=== PATIENT | female | born 1945 | race Caucasian/White ===

== ENCOUNTER 2023-05-24 14:54 | Outpatient (CLI) | payer MEDICARE, MEDICAID, SELFPAY ==
--- NOTE | 2023-05-24 15:07 | XR_ITS ---
WS: [id number] DEXA (DUAL ENERGY X-RAY ABSORPTIOMETRY) Bone mineral density was performed using a AquaBlok machine. HISTORY: POSTMENOPAUSAL COMPARISON: None available. Lumbar spine BMD (L1-L4): 1.076 g/cm2 T score: -0.9 Z score: 1.0 Total hip BMD: Left: 0.905 g/cm2. T score: -0.8 Z score: 1.1 Right: 0.940 g/cm2. T score: -0.5 Z score: 1.4 10 year probability of a major osteoporotic fracture is 33.5%. LEFT curvature lumbar spine. XR/XR DEXA axial skeleton* [id number] IMPRESSION: NORMAL BONE MINERAL DENSITY based upon the WHO classification for females.
--- NOTE | 2023-05-24 15:15 | MM_ITS ---
WS: [id number] BILATERAL 3D TOMOSYNTHESIS DIGITAL SCREENING MAMMOGRAPHY WITH CAD CLINICAL INFORMATION: SCREENING HISTORY: Screening mammogram. No current complaints. COMPARISON: None. TECHNIQUE: Bilateral CC and MLO views. FINDINGS: The breasts are composed of heterogeneous fibroglandular density tissue, which can limit the detectio n of small underlying mass lesions. No suspicious mass, asymmetry, calcifications, or architectural d istortion. No evidence of malignancy. MM/[place] [id number] IMPRESSION: BI-RADS: 1-Negative FOLLOW UP: 1 Year Follow-up Recommend return to annual screening mammography.
== END 2023-05-24 14:55 | disposition home or self-care (01) ==
LOC: RAD 15:02 → MOBLMAM 15:14
PROVIDERS: PCP Physician Assistant; Visit Provider Physician Assistant
DX: Z12.31 Encounter for screening mammogram for malignant neoplasm of breast (principal); Z78.0 Asymptomatic menopausal state
CPT/HCPCS: 77063; 77067; 77080

== ENCOUNTER → 2023-08-08 15:51 | Outpatient (BNVA) | payer MEDICARE, MEDICAID, SELFPAY | PROVIDERS: PCP Physician Assistant; Referring Provider Physician Assistant; Visit Provider Internal Medicine Cardiovascular Disease | DX: R07.9 Chest pain, unspecified (principal); I25.10 Atherosclerotic heart disease of native coronary artery without angina pectoris; I07.1 Rheumatic tricuspid insufficiency; E78.5 Hyperlipidemia, unspecified; I10 Essential (primary) hypertension | CPT/HCPCS: 93005; 99204 ==

== ENCOUNTER → 2023-11-02 12:48 | Outpatient (BNVA) | payer MEDICARE, MEDICAID, SELFPAY | PROVIDERS: PCP Physician Assistant; Visit Provider Nurse Practitioner Family | DX: I10 Essential (primary) hypertension (principal); I25.10 Atherosclerotic heart disease of native coronary artery without angina pectoris | CPT/HCPCS: 99214 ==

== ENCOUNTER 2023-11-18 12:26 | Outpatient (CLI) | payer MEDICARE, MEDICAID, SELFPAY ==
--- NOTE | 2023-11-18 13:00 | USCV_ITS ---
Devi Hyde Age: 78 Gender: F : 1945 Exam Date: 11/18/2023 13:21 Ordering Phys: Brisa Barone Technologist: Alek Han [place] [facility] [place]: mitral regurg BP: 129 / 78 HR: 50 Rhythm: Sinus Technical Quality: Adequate MEASUREMENTS (Male / Female) Normal Values 2D ECHO LVOT Diameter 2.0 cm LV Ejection Fraction MOD 2C 61.5 % LV Ejection Fraction 2C AL 61.6 % LA Diameter 3.5 cm LA Width 3.1 cm LA Height 4.0 cm RA Width 2.9 cm RA Height 4.0 cm Aorta at Sinotubular Diameter 2.8 cm IVC Diameter 1.2 cm M-MODE Aortic Annulus Diameter 2.6 cm LA Ao Ratio MM 1.4 MV E Point Septal Separation 0.4 cm DOPPLER AV Peak Velocity 131.7 cm/s LVOT Peak Velocity 78.0 cm/s AV Area Cont Eq vti 1.8 cm squared AV Area Cont Eq pk 1.9 cm squared MV Peak Velocity 111.0 cm/s MV Area PHT 5.0 cm squared Mitral E to A Ratio 0.9 MV E' Velocity 50.0 cm/s Mitral E to MV E' Ratio 7.8 Mitral E to LV E' Lateral Ratio 8.0 Mitral E to LV E' Septal Ratio 7.8 TR Peak Velocity 215.4 cm/s TR Peak Gradient 18.6 mmHg TR Mean Velocity 185.9 cm/s TR Mean Gradient 13.7 mmHg TR Velocity Time Integral 57.3 cm Right Atrial Pressure 3.0 mmHg Pulmonary Artery Systolic Pressu 21.6 mmHg PV Peak Velocity 86.0 cm/s RV Acceleration Time 0.2 s RV Ejection Time 0.3 s RV AcT/ET 0.6 FINDINGS Left Ventricle Normal left ventricular size and systolic function, EF 64 %. No regional wall motion abnormalities. Mild left ventricular hypertrophy. Right Ventricle The right ventricle is normal in size and function. Right Atrium The right atrium is normal in size. Left Atrium The left atrium is normal in size. Mitral Valve Thickened mitral valve. Aortic Valve Thickened aortic valve. Tricuspid Valve No gross abnormalities noted .trace tricuspid valve regurgitation. Pulmonic Valve Pulmonic valve not well visualized. Pericardium Normal pericardium without effusion. Aorta Normal ascending aorta dimension. IVC Normal inferior vena cava. CONCLUSIONS Normal left ventricular size and systolic function, EF 64 %. No regional wall motion abnormalities. Mild left ventricular hypertrophy. Thickened mitral valve. Thickened aortic valve. .trace tricuspid valve regurgitation. Estimated pulmonary artery peak systolic pressure of 22 mmHg There is no pericardial effusion. There are no intracardiac masses. No similar previous studies are available for comparison. Dr Sonya Steele MD [facility] (Electronically Signed) Final Date: 21 November 2023 16:42 S
== END 2023-11-18 12:27 | disposition home or self-care (01) ==
LOC: RAD 12:27
PROVIDERS: PCP Physician Assistant; Visit Provider Nurse Practitioner Family
DX: I34.0 Nonrheumatic mitral (valve) insufficiency (principal); I08.0 Rheumatic disorders of both mitral and aortic valves
CPT/HCPCS: 93306

== ENCOUNTER → 2024-04-30 11:40 | Outpatient (BNVA) | payer MEDICARE, MEDICAID, SELFPAY | PROVIDERS: PCP Physician Assistant; Visit Provider Internal Medicine Cardiovascular Disease | DX: R07.9 Chest pain, unspecified (principal); R00.1 Bradycardia, unspecified; I25.10 Atherosclerotic heart disease of native coronary artery without angina pectoris; I10 Essential (primary) hypertension; E78.2 Mixed hyperlipidemia; I36.1 Nonrheumatic tricuspid (valve) insufficiency | CPT/HCPCS: 93005; 99214 ==

== ENCOUNTER → 2025-01-14 14:31 | Outpatient (BNVA) | payer MEDICARE, MEDICAID, SELFPAY | PROVIDERS: PCP Physician Assistant; Visit Provider Internal Medicine Cardiovascular Disease | DX: I25.10 Atherosclerotic heart disease of native coronary artery without angina pectoris (principal); R00.1 Bradycardia, unspecified; I10 Essential (primary) hypertension; E78.2 Mixed hyperlipidemia; I36.1 Nonrheumatic tricuspid (valve) insufficiency; I25.2 Old myocardial infarction; Z87.891 Personal history of nicotine dependence | CPT/HCPCS: 99214 ==

== ENCOUNTER → 2025-01-24 09:28 | Outpatient (BNVA) | payer MEDICARE, MEDICAID, SELFPAY | PROVIDERS: PCP Physician Assistant; Visit Provider Orthopaedic Surgery | DX: M16.11 Unilateral primary osteoarthritis, right hip (principal) | CPT/HCPCS: 99204 ==

== ENCOUNTER 2025-02-12 09:46 | Outpatient (CLI) | payer MEDICARE, MEDICAID, SELFPAY ==
[2025-02-12 10:35] LABS: Basophils # 0.1 10^3/uL (0.0-0.1); Basophils % 1.8 %; Eosinophils # 0.5 10^3/uL (0.0-0.8); Hematocrit 43.6 % (36-47); Lymphocytes # 1.5 10^3/uL (0.8-4.8); Mean Corpuscular HGB Conc 31.7 g/dL (30-55); Mean Corpuscular Hemoglobin 29.6 pg (27-33); Mean Corpuscular Volume 93.6 fl (85-98); Mean Platelet Volume 10.2 fL (7.4-10.4); Monocytes # 0.6 10^3/uL (0.2-0.9); Monocytes % 10.3 %; Neutrophils # 3.41 10^3/uL (1.8-7.7); Neutrophils % 55.6 %; Nucleated Red Blood Cells % 0 %; Platelet Count 236 10^3/cmm (157-399); Red Blood Count 4.66 10^6/uL (3.85-5.65); Red Cell Distribution Width 12.8 % (12.1-15.1); White Blood Count 6.13 10^3/uL (3.29-11.43)
[2025-02-12 10:37] LABS: Bacteria Urine None Seen /hpf; Hyaline Casts Urine 1.65 /lpf; Squamous Epithelial Cell Urine 0-5 /hpf (0-5); WBC Urine 0-5 /hpf (0-5)
[2025-02-12 10:49] LABS: Add Urine Microscopic? YES; Bilirubin Urine Neg (Negative); Blood Urine 2+ (Negative); Glucose Urine UA Norm (Normal); Ketones Urine Negative (Negative); Leukocyte Esterase Urine Negative (Negative); Nitrate Urine Negative (Negative); Protein Urine Neg (Negative); Urine Appearance Clear (CLEAR); Urine Color Yellow (Yellow); Urobilinogen Urine Norm (Negative); pH Urine 5 (5-7)
[2025-02-12 10:50] LABS: Add Urine Culture? No
[2025-02-12 10:55] LABS: Alanine Aminotransferase 16 U/L (0-33); Albumin Level 4.6 g/dL (3.5-5.2); Alkaline Phosphatase 90 U/L (35-105); Anion Gap 14.2 (5-19); Aspartate Amino Transferase 19 U/L (0-32); Blood Urea Nitrogen 25 mg/dL (8-23); Calcium 9.2 mg/dL (8.5-10.5); Carbon Dioxide 26 mmol/L (22-29); Chloride 109 mmol/L (98-107); Globulin 2.4 g/dL (1.3-4.6); Glucose 97 mg/dL (65-115); Osmolality Calculated 304 mOsm/kg (285-295); Potassium 4.2 mmol/L (3.5-5.1); Sodium 145 mmol/L (136-145); Total Bilirubin 1.3 mg/dL (0.15-1.2)
== END 2025-02-12 09:47 | disposition home or self-care (01) ==
LOC: LAB 09:48
PROVIDERS: PCP Physician Assistant; Visit Provider Orthopaedic Surgery
DX: Z01.818 Encounter for other preprocedural examination (principal)
CPT/HCPCS: 36415; 80053; 81001; 85025

== ENCOUNTER → 2025-02-19 10:25 | Outpatient (BNVA) | payer MEDICARE, MEDICAID, SELFPAY | PROVIDERS: PCP Physician Assistant; Visit Provider Family Medicine | DX: Z01.818 Encounter for other preprocedural examination (principal); I21.19 ST elevation (STEMI) myocardial infarction involving other coronary artery of inferior wall | CPT/HCPCS: 93005 ==

== ENCOUNTER 2025-03-10 03:09 | Emergency (ER) | payer MEDICARE, MEDICAID, SELFPAY ==
[2025-03-10 03:17] VITALS: BP 168/99; PULSE 68; RESP 16; TEMP 36.8; O2SAT 99; BMI 21.7
[2025-03-10 03:21] VITALS: BP 186/78; PULSE 87; RESP 18; O2SAT 96
[2025-03-10] MEDS: ondansetron 2 mg/ML SDV 2 mL 4 MG IVP (04:02)
[2025-03-10] MEDS: morphine 4 mg/mL SDV 1 mL IVP ×2 (04:02→04:39)
--- NOTE | 2025-03-10 04:07 | XRR_ITS ---
PROCEDURE INFORMATION: Exam: XR Right Hip Exam date and time: 03/10/2025 4:09 AM Age: 79 years old Clinical indication: Right hip; C/O intolerable RT hip pain. No injury. Scheduled for jessica on 03/12/2025; Additional info: R hip inj/pain TECHNIQUE: Imaging protocol: Radiologic exam of the right hip. Views: 1 view hip with pelvis when performed. COMPARISON: CR XR hip RT 2-3V wo/w pel* [id number] 01/11/2025 10:50 AM FINDINGS: Bones/joints: Very severe end-stage right hip degenerative change again noted. 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 Extensive subchondral cystic formation. Moderate left hip DJD. No fracture or significant change from 01/11/2025. Soft tissues: Absent appendix. XR/XR hip RT 2-3V wo/w pel* [id number] IMPRESSION: 1. No acute findings. 2. End-stage right hip DJD. 3. A few other chronic/incidental findings above.
[2025-03-10 04:34] VITALS: BP 168/99; PULSE 68; RESP 18; O2SAT 96
[2025-03-10] MEDS: ketorolac 30 mg/mL INJ IVP (04:39)
--- NOTE | 2025-03-10 05:08 | W.ED.EXTPRO ---
HPI - Extremity Problem General: Chief complaint: Extremity Injury, Lower Stated complaint: HIP PAIN Time Seen by Provider: 03/10/25 03:59 History of Present Illness: 79 year old female with end stage right hip osteoarthritis. She's awaiting arthroplasty on Tuesday. She reports that her dog jumped on her hip earlier in the evening. She's had an intense pain since. She has been unable to bear weight. No numbness or tingling. No swelling. She had been taken off of her ibuprofen, diclofenac, and Tylenol prior to her procedure. Related Data Home Medications ?Medication ?Instructions ?Recorded ?Confirmed acetaminophen 650 mg 650 mg PO Q12H 08/08/23 02/19/25 tablet,extended release (Tylenol 8 Hour) aspirin 81 mg chewable tablet 81 mg PO DAILY 08/08/23 02/19/25 atorvastatin 80 mg tablet 80 mg PO DAILY 08/08/23 02/19/25 carvedilol 6.25 mg tablet 6.25 mg PO BID 08/08/23 02/19/25 diclofenac sodium 75 mg 75 mg PO BID 08/08/23 02/19/25 tablet,delayed release gabapentin 300 mg capsule 300 mg PO DAILY 08/08/23 02/19/25 sertraline 100 mg tablet 50 mg PO DAILY 08/08/23 02/19/25 Previous Rx's ?Medication ?Instructions ?Recorded losartan 50 mg tablet See Rx Instructions .Route 02/06/25 .COMPLEX #90 tabs oxycodone-acetaminophen 7.5 mg-325 1 tab PO Q6H PRN pain #10 tabs 03/10/25 mg tablet (Percocet) Allergies Allergy/AdvReac Type Severity Reaction Status Date / Time No Known Allergies Allergy Verified 02/19/25 10:41 PFSH ED PFSH: Medical History Hyperlipidemia Essential hypertension Generalized anxiety disorder Bradycardia Muscle pain Hx of echocardiogram Hx of myocardial infarction Social History Smoking and tobacco/nicotine status: former use of tobacco/nicotine Physical Exam Const: GENERAL APPEARANCE: cooperative HENMT: COMMON NORMALS: normocephalic, atraumatic and Normal external nose present HEAD & SCALP: normocephalic and atraumatic FACE & SINUS: normal facial exam and face symmetric NOSE: Normal external nose present Eye: COMMON NORMALS: Equal, round and reactive pupils present and EOMs intact bilaterally PUPIL: Yes Equal, round and reactive pupils present Neck/C-Spine: GENERAL: Yes trachea midline Chest: CHEST: Yes Symmetrical chest wall rise Resp: COMMON NORMALS: normal respiratory effort, No retractions, No use of accessory muscles and clear to auscultation bilaterally AUSCULTATION: clear to auscultation bilaterally Cardio: COMMON NORMALS: regular rate and regular rhythm RATE: regular rate RHYTHM: regular rhythm GI: COMMON NORMALS: Normal to inspection, nondistended, normoactive bowel sounds present Extremity: NARRATIVE EXTREMITY EXAM: Examination of the right lower extremity reveals no significant deformity. There is tenderness to the anterior and lateral hip on the right. No significant pelvis tenderness. Pulses and sensation are intact distally. There is pain with movement of that hip. No tenderness to the femur distal to the hip. Neuro: GABO COMA SCALE: document GCS findings Ragland coma scale eye opening: Spontaneous Gabo coma scale verbal response: Orientated Ragland coma scale motor response: Obey commands Ragland coma scale total score: 15 SENSORY EXAM: Yes extremities (intact) Psych: COMMON NORMALS: speech normal SPEECH: Yes normal speech Course Vital Signs: Vital signs: Vital Signs Temperature 98.3 F 03/10/25 03:17 Pulse Rate 72 03/10/25 06:11 Respiratory Rate 16 03/10/25 06:11 Blood Pressure 168/99 03/10/25 06:11 Pulse Oximetry 92 03/10/25 06:11 Oxygen Delivery Me thod Room Air 03/10/25 04:34 MDM - Extremity (Nontraumatic) Medical Decision Making X-rays reveal no acute findings. There is end stage OA of the right hip. Pain is improved after morphine and toradol here. She'll go home with percocet for 48 hours until her procedure. Ice. Limited weight bearing. To return for any new or worsening symptoms. Lab Data Radiology Impressions Hip/Pelvis X-Ray 03/10/25 04:07 IMPRESSION: 1. No acute findings. 2. End-stage right hip DJD. 3. A few other chronic/incidental findings above. All radiology interpretation(s) finalized by discharge Discharge Plan Discharge Patient Disposition: Home Clinical Impression: Hip osteoarthritis Condition: Stable Prescriptions: New oxycodone-acetaminophen [Percocet] 7.5-325 mg tablet 1 tab PO Q6H PRN (Reason: pain) Qty: 10 0RF No Action atorvastatin 80 mg tablet 80 mg PO DAILY aspirin 81 mg tablet,chewable 81 mg PO DAILY carvedilol 6.25 mg tablet 6.25 mg PO BID Rx Instructions: must administer with a meal/food diclofenac sodium 75 mg tablet,delayed release (DR/EC) 75 mg PO BID gabapentin 300 mg capsule 300 mg PO DAILY sertraline 100 mg tablet 50 mg PO DAILY acetaminophen [Tylenol 8 Hour] 650 mg tablet extended release 650 mg PO Q12H losartan 50 mg tablet See Rx Instructions .ROUTE .COMPLEX Qty: 90 3RF Dose Instruction: Take 1 tablet by mouth once daily Rx Instructions: Take 1 tablet by mouth once daily Discharge Orders: Discharge ED (Routine); Ordered 03/10/25 Ordered By: Francisco J Topete Referrals: Asia Steven PA [Primary Care Provider, [address] Worker] Patient Instructions: Osteoarthritis (ED), Opioid Safety, Pain Management Activity Restrictions/Additional Instructions: Use medication sparingly. Ice to the hip. Return for fever or other problems. See your surgeon on Tuesday. Print Language: Yoruba Coding Level of Care Code ED Gutter Installer for Keesha Ryan
[2025-03-10 06:11] VITALS: BP 168/99; PULSE 72; RESP 16; O2SAT 92
== END 2025-03-10 06:13 | disposition home or self-care (01) ==
PROVIDERS: Emergency Provider Emergency Medicine; PCP Physician Assistant
DX: M16.11 Unilateral primary osteoarthritis, right hip (principal); Z79.82 Long term (current) use of aspirin; Z87.891 Personal history of nicotine dependence; E78.5 Hyperlipidemia, unspecified; I10 Essential (primary) hypertension
CPT/HCPCS: 73502; 96374; 96375; 99284; J1885; J2270; J2405

== ENCOUNTER 2025-03-12 14:20 | Observation (INO) | payer MEDICARE, MEDICAID, SELFPAY ==
[2025-03-12] VITALS (12 sets, daily range): BP systolic 110–148; BP diastolic 54–85; PULSE 62–88; RESP 16–20; TEMP 36.3–37.2; O2SAT 91–99; BMI 23.1
[2025-03-12] MEDS: sodium chloride 0.9% 1,000 ML 30 ML IV (10:23)
--- NOTE | 2025-03-12 10:38 | W.PM.OPSUD ---
Surgery/Procedure H&P Update DATE OF PROCEDURE: March 12, 2025 DATE H&P PERFORMED: 02/19/25 H&P UPDATE INFORMATION: I have reviewed H&P completed within last 30 days, I have examined patient prior to procedure, No changes to prior documentation and Risks and benefits of the procedure reviewed PREOP DIAGNOSIS: Right hip end-stage arthritis PLANNED PROCEDURE: Operation Date: 03/12/25 11:05 Proposed Procedures p RIGHT Total Hip Arthroplasty(Right) - Mauri Moore MD
--- NOTE | 2025-03-12 11:54 | ANES.PREANE2 ---
Pre-Anesthetic Assessment Height/Weight: Height 1.63 m Weight 61.235 kg Temp Pulse Resp BP Pulse Ox O2 Del Method 97.4 F L 62 16 132/75 99 Room Air 03/12/25 09:52 03/12/25 09:52 03/12/25 09:52 03/12/25 09:52 03/12/25 09:52 03/12/25 09:53 Preop Diagnosis: Right hip end-stage arthritis Operation Date: 03/12/25 11:05 Proposed Procedures p RIGHT Total Hip Arthroplasty(Right) - Mauri Moore MD Familial anesthetic complications: None Was Beta James taken within 24 hours: Yes Was Clonidine taken within 24 hours: N/A Last intake: Intake Last Liquid Date 03/11/25 Last Liquid Time 21:30 Last Solid Date 03/11/25 Last Solid Time 19:00 Social No alcohol and No tobacco former smoker Exam alert, oriented x 3, clear to auscultation bilaterally and regular rate & rhythm Airway Mallampati: Class I Dentition: partials CV/HEM Coronary Artery Disease, Hypertension and Myocardial Infarction Metabolic Hyperlipidemia Anesthetic Plan ASA status: 3 Anesthesia: Regional (specify below) Risk of > 500 ml blood loss (7ml/kg in children): Yes, adequate IV access and fluids planned Medications/Allergies Home Medications ?Medication ?Instructions ?Recorded ?Confirmed ?Last Taken ?Type acetaminophen 650 mg 650 mg PO Q12H 08/08/23 03/11/25 03/04/25 History tablet,extended release (Tylenol 8 Hour) aspirin 81 mg chewable tablet 81 mg PO DAILY 08/08/23 03/11/25 03/04/25 History atorvastatin 80 mg tablet 80 mg PO DAILY 08/08/23 03/11/25 03/11/25 History carvedilol 6.25 mg tablet 6.25 mg PO BID 08/08/23 03/11/25 03/11/25 History diclofenac sodium 75 mg 75 mg PO BID 08/08/23 03/11/25 03/04/25 History tablet,delayed release gabapentin 300 mg capsule 300 mg PO DAILY 08/08/23 03/11/25 03/11/25 History sertraline 100 mg tablet 50 mg PO DAILY 08/08/23 03/11/25 03/10/25 History losartan 50 mg tablet 50 mg PO DAILY 03/11/25 03/11/25 03/11/25 History Allergies Allergy/AdvReac Type Severity Reaction Status Date / Time No Known Allergies Allergy Verified 02/19/25 10:41 Current Medications Generic Name Dose Route Start Last Admin Trade Name Natividad PRN Reason Stop Dose Admin Sodium Chloride 1,000 mls @ 30 mls/hr 03/12/25 09:45 03/12/25 10:23 Sodium Chloride 0.9% IV 03/13/25 09:44 30 mls/hr .Q24H GLORIA Administration PFSH Anesthesia Medical History Hyperlipidemia Essential hypertension Generalized anxiety disorder Bradycardia Muscle pain Hx of echocardiogram Hx of myocardial infarction Social History Smoking and tobacco/nicotine status: former use of tobacco/nicotine Data Anesthesia Cardiac Studies: Echocardiogram 11/18/23
[2025-03-12] MEDS: ceFAZolin 2,000 mg SDV 2000 MG IVP ×2 (12:43→21:04)
--- NOTE | 2025-03-12 14:34 | XR_ITS ---
WS: [id number] Exam: XR hip RT 1V wo/w pel [id number] Date/Time of Exam: 03/12/2025 2:34 PM Reason For Exam: Total hip arthroplasty on the right RIGHT total hip arthroplasty is noted. Postop changes in the adjacent soft tissues. Surgical skin clips noted laterally.
--- NOTE | 2025-03-12 14:48 | PM.OP ---
Operative Report Date of procedure: March 12, 2025 Surgeon: Mauri Moore MD Procedure: Preop diagnosis: 1 end-stage degenerative joint disease right hip Postop diagnosis: Same Procedure: Right total hip arthroplasty Surgeon: Mauri Moore MD Anesthesia: Spinal EBL: 100 cc Complications: None Indications: Devi servin a 79-year-old white female was referred into the orthopedic clinics for debilitating right hip pain. After evaluation and review of x-rays it was found that she had loss of motion within her hip. She has lost internal/external rotation. She had pain with weightbearing. She is now using an assistive device to walk with. [id number] anti-inflammatories are not beneficial. X-rays demonstrated distraction of the superior portion of the femoral head with cystic changes and wear into the acetabulum. Therefore at this time she was offered a right total hip arthroplasty. All risk benefits treatment alternatives were discussed with her and she was agreeable to this at this time. Procedure: After obtaining her consent patient was taken to the operating room placed on the operative table in a sitting position and spinal anesthetic is administered. Once good anesthesia was achieved patient platelet down in the supine position until spinal lead taken. Patient was then placed up in the lateral decubitus position with the right hip up. She is padded appropriately and held up with a pegboard. Right hip and leg were prepped and draped usual fashion. After surgical timeout hip was flexed at 90 degrees and minimally invasive lateral approach was made towards the hip. Sharp dissection taken on down to subcutaneous tissues electrocautery used for hemostasis. Retractors were placed and dissection was taken on down the greater trochanter and exposing its posterior edge. Leg was gently internally rotated and dissection continued along the posterior aspect of the greater trochanter down the femoral neck. Piriformis was raised up off of the bony insertion as well as the capsule. Capsule was opened up in a T-type fashion. Hip was then internally rotated 90 degrees and dislocated. Appropriate deep retractors were placed. Templating of the proximal femur was done and appropriate femoral neck cut was done with a sagittal saw. Once head was removed retractor was placed to hold the femur all the way and expose the acetabulum. Acetabulum had all soft tissue including labrum was sharply debrided from its periphery however saving the capsule. Reaming starting a size 48 reamer and advancing up by 1 mm increments was done until good bleeding bone was achieved with a 51 mm reamer. Areas washed with sterile irrigation. Trial 51 cup was placed and found to have adequate fit. Subsequently a size 52 porous ingrowth acetabulum was placed and impacted with appropriate anteversion. Once in place and secured. Small nerve hook was used to ensure that it did reach down to the bony problem the next time in a good contact. This is found to be trimmed. 20 Stokes hide will polyethylene liner was placed with appropriate positioning and pink fit and locked in place. Attention was turned towards the left proximal finger now. Comfortable from retractor was placed. Box cut osteotome was used to make an entry point. Hand reaming was done the femoral condyle. Broaching starting to 0 broach was done in stepwise fashion up to a size 2 broach. This was found to have adequate fit and fill. Once this were loaded with a lateralized size 10 femoral stem was then placed with appropriate anteversion impacted. Standard neck length with a 36 mm trial head was placed on the Medrano taper of the femoral component hip was reduced applied to range of motion. It was found to be stable. He is also found to be with equal leg lengths as compared to the opposite side. Hip was dislocated. Trial head and neck were removed. Areas washed with sterile irrigation again. Permanent size 36 standard neck ceramic head was then placed on the Medrano taper impacted. Hip was reduced again put range of motion found to be stable. A knee bump was placed between the knees and hip was gently internally rotated. Capsule was repaired with #1 Vicryl [id number] sutures. Piriformis was repaired with #5 Ethibond through bone tunnels in a [id number] fashion. Area was washed again with sterile irrigation. Retractors were removed. Deep fascia was reapproximated 0 Vicryl [id number] sutures. Subcutaneous tissue reapproximated 0 Vicryl interrupted sutures. Skin was closed with skin lisa. Wounds were cleaned and dried dressed with Silverlon occlusive dressing. Patient was placed in abduction pillow awakened placed back on her hospital bed and transferred to the recovery room in stable condition
--- NOTE | 2025-03-12 14:55 | ANE.PACU2 ---
Inpatient post-anesthesia follow up: Airway intact: Yes Vital signs: Temperature 98.3 F Pulse Rate 76 Respiratory Rate 15 Blood Pressure 109/73 Pulse Oximetry 98 Oxygen Delivery Me thod Room Air Oxygen Flow Rate Fraction of Inspir ed Oxygen Hydration adequate: Yes Nausea and vomiting: No Pain level: 1 Mental status: Baseline
--- NOTE | 2025-03-12 15:06 | PC.NURSE ---
accepted into OB 9 - with Ekaterina RN at side - pt in no distress upon this nurse exiting care - BP 141/71 - pulse 60 - 02 91% - temp 97.7
[2025-03-12] MEDS: HYDROcodone-acetaminophen 5-325 mg Tablet 1 TAB PO ×2 (15:31→19:52)
[2025-03-12] MEDS: ketorolac 30 mg/mL INJ 15 MG IVP ×2 (15:31→19:53)
--- NOTE | 2025-03-12 16:07 | PC.NURSE ---
PT at bedside
--- NOTE | 2025-03-12 17:50 | PM.CONSULT ---
Providers/Reason For Consult Consulting Physician/Specialty*: Jewell Marroquin MD/ Hospitalist Reason for Consult*: medical comorbidity management Requesting Physician: Mauri Moore MD Attending Physician: Marui Moore MD Primary Care Provider: Asia Steven History of Present Illness History of Present Illness Devi Hyde is a 79 year old female history of CAD s/p PCI 3 years ago, Tricuspid incompetence, Hyperlipidemia, Essential hypertension. She underwent an elective right sided hemiarthroplasty today due to persistent hip pain. Hospitalist service is consulted for management of medical comorbidities. Patient denies any specific symptoms currently. Tolerated the surgery well without any immediate perioperative complications. Review of Systems General: Reports: 10 or more systems reviewed and unremarkable except in HPI and below Const: Denies: fever(s), chills or body aches Eyes: Denies: change in vision, blurry vision or photophobia ENMT: Reports: hoarseness; Denies: throat pain, enlarged tonsils, odynophagia or nasal congestion Card: Denies: chest pain, palpitations, irregular heart rhythm, edema, swelling of feet/ankles, lightheadedness, pre-syncope, dyspnea on exertion or orthopnea Resp: Denies: dyspnea, productive cough, non-productive cough, wheezing, stridor, pain on inspiration, change in phlegm color, hemoptysis or chest congestion GI: Denies: abdominal pain, nausea, vomiting, hematemesis, coffee ground emesis, dysphagia, heartburn, diarrhea, constipation, GI cramping, change in stool character, hematochezia or melena : Denies: flank pain, difficulty voiding, dysuria, urinary frequency, urinary urgency, urinary hesitancy or hematuria Musc: Denies: neck pain, back pain, extremity pain, joint swelling, joint warmth or deformity Neuro: Denies: headache(s), numbness in extremities, weakness in extremities, sensory changes, difficulty walking, frequent falls, dizziness, vertigo, behavioral changes, Slurred speech present or seizure-like activity Psych: Denies: anxiety, depression, suicidal ideation or homicidal ideation Endo: Denies: polyuria, polydipsia, tired all the time, cold intolerance or hot flashes Lyle/Lymph: Denies: easy bruising or easy bleeding Medications/Allergies Home Medications ?Medication ?Instructions ?Recorded ?Confirmed ?Last Taken ?Type acetaminophen 650 mg 650 mg PO Q12H 08/08/23 03/11/25 03/04/25 History tablet,extended release (Tylenol 8 Hour) aspirin 81 mg chewable tablet 81 mg PO DAILY 08/08/23 03/11/25 03/04/25 History atorvastatin 80 mg tablet 80 mg PO DAILY 08/08/23 03/11/25 03/11/25 History carvedilol 6.25 mg tablet 6.25 mg PO BID 08/08/23 03/11/25 03/11/25 History diclofenac sodium 75 mg 75 mg PO BID 08/08/23 03/11/25 03/04/25 History tablet,delayed release gabapentin 300 mg capsule 300 mg PO DAILY 08/08/23 03/11/25 03/11/25 History sertraline 100 mg tablet 50 mg PO DAILY 08/08/23 03/11/25 03/10/25 History losartan 50 mg tablet 50 mg PO DAILY 03/11/25 03/11/25 03/11/25 History Allergies Allergy/AdvReac Type Severity Reaction Status Date / Time No Known Allergies Allergy Verified 02/19/25 10:41 Current Medications Generic Name Dose Route Start Last Admin Trade Name Freq PRN Reason Stop Dose Admin Hydrocodone Bitart/Acetaminophen 1 tab 03/12/25 14:34 03/12/25 15:31 Hydrocodone-Acetaminophen 5-325 Mg Tablet PO 1 tab Q4H PRN Administration MODERATE PAIN Ketorolac Tromethamine 15 mg 03/12/25 14:34 03/12/25 15:31 Ketorolac 30 Mg/Ml Inj IVP 15 mg Q6H PRN Administration MODERATE TO SEVERE PAIN PFSH Acute PFSH: Medical History Hyperlipidemia Essential hypertension Generalized anxiety disorder Bradycardia Muscle pain Hx of echocardiogram Hx of myocardial infarction Social History Smoking and tobacco/nicotine status: former use of tobacco/nicotine Vitals/I&O/Wt Last Vital Signs Temp 97.8 F 03/12/25 14:49 Pulse 66 03/12/25 14:49 Resp 18 03/12/25 14:49 BP 145/77 03/12/25 14:49 Pulse Ox 94 03/12/25 14:49 O2 Del Method Room Air 03/12/25 15:00 03/12/25 03/12/25 03/12/25 06:59 14:59 22:59 Intake Total 550 / 550 Output Total 250 / 250 Balance 300 / 300 Weight last 48 hrs Weight 61.235 kg Physical Exam Narrative: General: No acute distress, AO x3 HEENT: PERRLA, pupils bilaterally equal and reactive, pallors not present Chest: Normal vesicular breath sounds, no added sounds, equal good air entry bilaterally CVS: S1-S2 regular, no murmurs, no tachycardia, no gallops, no rubs Abdomen: Soft, nontender, no organomegaly, bowel sounds present Neuro: No focal deficits, no facial deformity, AO x3, power 5/5 in all limbs Data 03/13/25 03:42 03/13/25 03:42 A&P Assessment and plan (1) Essential hypertension: Continue home medications losartan and carvedilol. (2) Tricuspid incompetence: Currently patient is euvolemic. No signs of decompensated heart failure. Lactated Ringer's currently running at 100 cc an hour. Would discontinue after 1000 cc has been completed postop. (3) Atherosclerosis of coronary artery of [place] heart without angina pectoris: Last coronary intervention several years ago. Currently on aspirin 325 mg p.o. daily for DVT prophylaxis which will additionally suffice for CAD. Once the DVT prophylaxis dose can be brought down from a surgery perspective, patient can be transitioned to aspirin 81 mg p.o. daily. (4) Hip osteoarthritis: Status post hemiarthroplasty today. States that pain is adequately controlled currently. PDMP PDMP Reviewed: Not Reviewed Consult Attestations Medical Necessity Statement: Per admitting Coding Level of Care Code Acute Code for Chg Fwd Diagnoses Essential hypertension I10 Nonrheumatic tricuspid valve regurgitation I36.1 Cardiac valve disease etiology: nonrheumatic Atherosclerosis of [place] coronary artery of [place] heart without angina pectoris I25.10 Coronary Disease-Associated Artery/Lesion type: [place] artery Hip osteoarthritis M16.9
[2025-03-12] MEDS: calcium carbonate 500 mg Chew Tablet 1000 MG PO (17:56)
[2025-03-12] MEDS: chlorhexidine gluconate 0.12% Btl 473 mL 30 ML MUCOUS MEM ×2 (17:56→21:05)
[2025-03-12] MEDS: iron polysaccharide complex 150 mg Capsule PO (17:57)
[2025-03-12] MEDS: sennosides-docusate Tablet 2 TAB PO (17:57)
[2025-03-12] MEDS: mupirocin oint 22 gm 1 APPLIC NASAL (18:01)
--- OUTSIDE RECORDS SUMMARY | 2025-03-12 19:58 | XMS_ITS | Data Portability ---
Author Organization [facility] Address [address] [facility] [address] [place] [address] Care Team Providers Care Hog Tender Name Role Phone ASIA ZACARIAS Primary Care Provider Unavailabl e Assessment No assessment recorded. Plan of Treatment Reminders Order Date Submit Date Provider Last Modified By Organization Details Last Modified Time Details Appointments None recorded. Lab None recorded. Referral cardiologis t referral 2024 025 [place] [address] [facility], [address] [place] [address], [address], 12:47:10 Procedures None recorded. Surgeries None recorded. Imaging electrocard iogram [address] ([facility]), [address] [place], [address], 12:03:20 Medication Orders sertraline 100 mg tablet 2024 025 [facility], [address], [place], [address], 13:09:15 Patient TargetsNo targets recorded. Patient InstructionsNo instructions recorded. Reason for Referral Marketing Underwriter Referral for Pr e-surgery evaluation preop clearance for hip replacement. Referring Physician: Asia Zacarias, Family Medicine, Encounter Date: 02/05/2025 Results Created Date Observation Date Name Description Value Unit Range Abnormal Flag Note LastModifiedBy Organization Detail LastModifiedTime 01/15/20 25 01/11/2025 XR, hip + pelvi s, unila teral , 2 or 3 view No observ ation record ed. [email or web address] [facility] [address] [place], [address], 01/15/2025 12:22:53 02/06/20 25 02/05/2025 elect rocar diogr am No observ ation record ed. [email or web address] [facility] ([facility]) [address] [place], [address], 02/05/2025 14:26:59 02/06/20 25 02/05/2025 elect rocar diogr am No observ ation record ed. [email or web address] [facility] ([facility]) [address] [place], [address], 02/06/2025 08:43:05 02/06/20 25 02/05/2025 elect rocar diogr am No observ ation record ed. [facility] ([facility]) [address] [place], [address], 02/06/2025 08:44:51 Result Notes None recorded. Problems Name Problem SNOMED Code Status Onset Date Resolution Date Notes Provider Name and Address Organization Details Recorded Time Bradycar dee 45843219 Completed 202212/31/2024 Removal Reason: resolved YIFAN goldstein, [facility], Bernard.L.CKulwinder 20:31:20 Hyperlip idemia 38902925 Active 2022 YIFAN ALEXX null, [facility] 20:31:32 [facility] hyper[facility] rayray 17366018 Active 2022 YIFAN ALEXX null, [facility], L.L.CKulwinder 20:31:24 Muscle pain 47152480 Active 2022 YIFAN goldstein, [facility], [place] 5 20:31:35 Generali zed anxiety disorder 19471164 Active 2022 [facility]IL[facility] [place] 5 20:31:28 Pain of right knee joint 03879935107 4100 Completed 202312/31/2024 resolved Removal Reason: resolved YIFANMELYSSA TORREZLIZY goldstein [facility], [place] 5 20:32:16 Problem Notes None recorded. Procedures Surgical History Date Name Laterality Status Provider Name and Address Organization Details Recorded Time 07/05/20 24 [facility]/12[facility]2024 10:02:57 05/25/20 23 bone density scan [facility], [place] 06/19/2024 11:23:25 12/12/19 23 echocardiography completed [facility], BrittanyLKulwinderCKulwinder 07/05/2023 10:41:57 05/14/20 20 Stent completed [facility], BrittanyLKulwinderCKulwinder 04/19/2023 12:23:18 Imaging Results Imaging Date Name Status LastModified by Organization Details LastModified Time 01/11/2025 XR, hip + pelvis, unilateral, 2 or 3 view [email or web address] [address] [place], [address], 01/15/2025 12:22:53 02/05/2025 electrocardiogram completed [email or web address] [facility]) [address] [place], [address], 02/05/2025 14:26:59 02/05/2025 electrocardiogram completed [email or web address] [facility]) [address] [place], [address], 02/06/2025 08:43:05 02/05/2025 electrocardiogram completed [email or web address] [facility] [address] [place], [address], 02/06/2025 08:44:51 Procedure Notes None recorded. Medical Equipment None Reported. Allergies No known drug allergies Medications Name Sig Start Date Stop Date Status Note LastModified by Organization Details LastModified Time losartan 50 mg tablet TAKE 1 TABLET BY MOUTH ONCE DAILY active Not Available Not Available No t Available atorvastati n 80 mg tablet TAKE 1 TABLET BY MOUTH ONCE DAILY DIRECTED active Not Available Not Available No t Available carvedilol 6.25 mg tablet TAKE 1 TABLET BY MOUTH TWICE DAILY active Not Available Not Available No t Available valacyclovi r 1 gram tablet Take 1 tablet every 12 hours by oral route for 7 days. 10/20 completed Not Available Not Available Not Available sertraline 100 mg tablet Take 1 tablet every day by oral route as directed for 90 days. 2024 active Not Available Not Available Not Avai lable Tylenol Arthritis Pain 650 mg tablet,exte nded release Take 2 tablets as needed by oral route. active Not Available Not Available No t Available carvedilol 3.125 mg tablet Take 1 tablet twice a day by oral route for 90 days. 07/05 completed Not Available Not Available Not Available pantoprazol e 40 mg tablet,diya yed release TAKE 1 TABLET BY MOUTH ONCE DAILY active Not Available Not Available No t Available lidocaine 5 % topical patch APPLY ONE PATCH TO CLEAN SKIN DIRECTED EVERY DAY (12 HOURS ON AND 12 HOURS OFF) 01/01 completed Not Available Not Available Not Available losartan 25 mg tablet Take 1 tablet every day by oral route. 09/07 completed Not Available Not Available Not Available gabapentin 300 mg capsule TAKE 1 CAPSULE BY MOUTH THREE TIMES DAILY active Not Available Not Available No t Available sertraline 25 mg tablet TAKE 1 TABLET BY MOUTH ONCE DAILY 06/28 completed Not Available Not Available Not Available diclofenac sodium 75 mg tablet,diya yed release TAKE 1 TABLET BY MOUTH TWICE DAILY DIRECTED 2024 active Not Available Not Available Not Avai lable Baby Aspirin 81 mg chewable tablet Chew 1 tablet every day by oral route. active Not Available Not Available No t Available sertraline 50 mg tablet Take 1 tablet by mouth once daily 2024 active Not Available Not Available Not Avai lable amlodipine 5mg at hs 04/19 completed Not Available Not Available Not Available Vitals Date Recorded Body height Body mass index (BMI) Body weight Oxygen saturation Oxygen saturation in Arterial blood by Pulse oximetry Heart rate Respiratory rate Body temperature Systolic blood pressure Diastolic blood pressure Provider Name and Address Organization Details Last Updated DateTime 5 160.02 cm 24.6 kg/m2 45425.3 4 g 98 % 98 % 70 /min 20 /min 98 [degF] 138 mm[Hg] 80 mm[Hg] [facility] 5 15:50:39 Date Recorded Body height Body mass index (BMI) Body weight Oxygen saturation Oxygen saturation in Arterial blood by Pulse oximetry Heart rate Respiratory rate Body temperature Systolic blood pressure Diastolic blood pressure Provider Name and Address Organization Details Last Updated DateTime 5 160.02 cm 24.8 kg/m2 04235.9 3 g 97 % 97 % 76 /min 18 /min 97 [degF] 138 mm[Hg] 79.99 mm[Hg] [facility], L.L.CKulwinder 5 14:22:06 Date Recorded Body height Body mass index (BMI) Body weight Oxygen saturation Oxygen saturation in Arterial blood by Pulse oximetry Respiratory rate Body temperature Systolic blood pressure Diastolic blood pressure Provider Name and Address Organization Details Last Updated DateTime 5 160.02 cm 24.1 kg/m2 48998.5 6 g 97 % 97 % 18 /min 97 [degF] 140 mm[Hg] 80 mm[Hg] [facility], L.L.CKulwinder 5 11:09:41 Date Recorded Body height Body mass index (BMI) Body weight Oxygen saturation Oxygen saturation in Arterial blood by Pulse oximetry Heart rate Respiratory rate Body temperature Systolic blood pressure Diastolic blood pressure Provider Name and Address Organization Details Last Updated DateTime 5 160.02 cm 23.9 kg/m2 81439.9 7 g 98 % 98 % 72 /min 18 /min 98 [degF] 138 mm[Hg] 80 mm[Hg] YIFAN COFFEY [facility] 5 12:37:47 Social History None recorded. Functional Status None recorded. Mental Status None recorded. Family History Nothing Reported. Medical History No medical history recorded. Gynecological HistoryNo gynecological history recorded. Obstetrics History GPAL:G 0 P 0 0 0 0 Immunizations Vaccine Type Date Status Note Provider Nam e and Address Organization Details Recorded Time SARS-COV-2 (COVID-19) vaccine, UNSPECIFIED 1 [facility]/19[facility]2023 12:21:23 SARS-COV-2 (COVID-19) vaccine, UNSPECIFIED 1 completed [facility] 04/19/2023 12:21:51 SARS-COV-2 (COVID-19) vaccine, UNSPECIFIED 1 completed [facility] 04/19/2023 12:22:16 Tdap 8 completed ASIA ZACARIAS PA-C [address] [place], [address], [facility] 10/20/2023 12:20:47 Pneumococcal conjugate PCV 13 7 completed ASIA ZACARIAS PA-C [address] [place], [address], [facility] 10/20/2023 12:21:11 pneumococcal polysaccharide PPV23 8 completed ASIA ZACARIAS PA-C [address] [place], [address], [facility] 10/20/2023 12:21:59 COVID-19, mRNA, LNP-S, PF, 50 mcg/0.5 mL 5 completed Not Available [employer] 03/04/2025 11:57:46 Influenza, high-dose, quadrivalent, PF 3 completed ASIA ZACARIAS PA-C [address] [place] [address], [address], [facility] 10/20/2023 12:22:31 Influenza, adjuvanted, trivalent, PF 5 completed [facility] 11/14/2024 17:33:48 Past Encounters Encounter ID Performer Location Encounter Start Date Encounter Closed Date Diagnosis/Indication Diagnosis SNOMED-CT Code Diagnosis ICD10 Code Diagnosis Note [id number] ASIA ZACARIAS PA-C [facility] ([facility]) [address] [place], [place] [id number] 04/19/2023 11:51:14 05/12/2023 04:54:52 Coronary arteriosclerosis 34662588 I25.10 Menopausal and postmenopausal disorders 934239996 N95.9 [id number] Dong Raymond MD [facility] ([facility]) [address] [place] [id number] 06/22/2023 16:06:27 06/22/2023 17:55:50 Essential hypertension 36661230 I10 Bradycardia 36400583 R00 .1 [id number] ASIA ZACARIAS PA-C [facility] ([facility]) [address] [place] [id number] 07/05/2023 10:32:20 07/05/2023 18:29:38 Multi vessel coronary artery disease 657945116 I25.10 Stent in 03/2020 (hx ME)CHeck pulse. Ok to hold the carvedolol if pulse <60 [id number] ASIA ZACARIAS PA-C [facility] ([facility]) [address] [place] [id number] 5 09/07/2023 14:16:01 09/07/2023 18:16:46 Herpes zoster 3898191 B02.9 [id number] ASIA ZACARIAS PA-C [facility] ([facility]) [address] [place] [id number] 5 10/20/2023 11:20:39 10/20/2023 18:44:16 Adult health examination 425080158 Z00.00 Coronary arteriosclerosis 67834612 I25.10 Essential hypertension 22392294 I10 Administra tion of influenza vaccine 59134215 Z23 Generalize d anxiety disorder 36029292 F41.1 [id number] ASIA ZACARIAS PA-C [facility] ([facility]) [address] [place] [id number] 5 05/18/2024 11:16:11 05/18/2024 11:53:18 Essential hypertension 12851403 I10 Hyperlipidemia 37651058 E78.5 Generalize d anxiety disorder 31878599 F41.1 Abdominal pain 17439064 R10.9 stop diclofen. avoid acid food and caffiene beverages. Chronic ki dney disease stage 3B 691874567 N18.32 CCA form filled out during today's office visit [id number] ASIA ZACARIAS PA-C [facility] ([facility]) [address] [place] [id number] 5 05/29/2024 10:26:40 05/30/2024 14:20:08 [id number] ASIA ZACARIAS PA-C [facility] ([facility]) [address] [place] [id number] 5 06/28/2024 10:57:46 06/28/2024 14:37:31 Pain in both feet 1295514837 7249659 M79.671 foot exam normal. nails trimmed for comfort. no evedence of acute ingrown nail. [id number] ASIA ZACARIAS PA-C [facility] ([facility]) [address] [place] [id number] 5 09/11/2024 14:34:25 09/11/2024 16:36:59 Pain of right hip joint 5480042907 53397 M25.551 pt declines xray today or orthopedic referal stating her is no help at home and she would not have anyone to help with recovery and chores. Pain in both feet 438212 1900 4116652 M79.671 foot exam normal. nails trimmed for comfort. no evedence of acute ingrown nail. [id number] Dong Raymond MD [facility] ([facility]) [address] [place] [id number] 5 09/13/2024 11:07:45 09/13/2024 16:04:03 Pain of right knee joint 0366420533 86176 M25.561 X-rays were obtained and did not demonstrat e any acute issues. Mild arthritic changes noted. Patient's knee pain is likely related to contusion without significan t derangemen t. Encouraged RICE. Discussed restrictio ns and home exercises. Follow-up with PCP if symptoms are not improving. [id number] ASIA ZACARIAS PA-C [facility] ([facility]) [address] [place] [id number] 5 11/14/2024 14:56:27 11/14/2024 16:30:46 Pain in both feet 7355507868 2387125 M79.671 foot exam normal. nails trimmed for comfort. no evedence of acute ingrown nail. Administra tion of influenza vaccine 28446212 Z23 Essential hypertension 87582941 I10 Hyperlipidemia 86308097 E78.5 Chronic ki dney disease stage 3A 007124406 N18.31 Depressive disorder 3548 9007 F33.1 CCA form filled out during today's office visit [id number] ASIA ZACARIAS PA-C [facility] ([facility]) [address] [place] [id number] 5 01/01/2025 14:14:10 01/01/2025 15:14:10 Pain in both feet 5802349444 4389724 M79.671 foot exam normal. nails trimmed for comfort. no evedence of acute ingrown nail. Pain of ri ght hip joint 9905760357 75078 M25.551 pt declines xray today or orthopedic referal stating her is no help at home and she would not have anyone to help with recovery and chores. [id number] ASIA ZACARIAS PA-C [facility] ([facility]) [address] [place] [id number] 5 01/11/2025 11:46:44 01/11/2025 11:48:09 [id number] ASIA ZACARIAS PA-C [facility] ([facility]) [address] [place] [id number] 5 02/05/2025 11:03:08 02/05/2025 12:03:20 Osteoarthritis of right hip joint 9887947884 18364 M16.11 Pre-surger y evaluation 113121606 Z01.818 pt educated to stop ASA and all NSADS 5 days prior to surgery.Sh e will get pre op labs ordered thru [facility].If cardiology clears her, I feel she is a good candidate for surgery and see no increased risk of complicati ons. Coronary arteriosclerosis 73041385 I25.[address] Steele. Will get cardiac clearance from him. AHA cardiac risk 1-5%RCRI 1% Essential hypertension 87163176 I10 in control on ARB and B bartolo. [id number] ASIA ZACARIAS PA-C [facility] ([facility]) [address] [place] [id number] 5 03/04/2025 11:57:36 03/04/2025 13:37:38 Generalized anxiety disorder 98176211 F41.1 Pain in both feet 122204 5775 9273145 M79.671 foot exam normal. nails trimmed for comfort. no evedence of acute ingrown nail. Health Concerns Section Related Observation LastModified by Organization Detai ls LastModified Time None Recorded Concern Status LastModified by Organization Details LastModified Time None Recorded Advance Directives Directive None Recorded Payers Encounter Date Sequence Insurance Name Policy Number Policy Rawls Covered Member ID Rawls Member ID Guarantor Name 11/14/2024 1 [employer] (MEDICARE REPLACEMENT/ ADVANTAGE - PPO) Devi Hyde [id number] Devi Hyde 11/14/2024 2 [place] Devi Hyde [id number] Devi Hyde 01/01/2025 1 [employer] (MEDICARE REPLACEMENT/ ADVANTAGE - PPO) Devi Hyde [id number] Devi Hyde 01/01/2025 2 [place] Devi Hyde [id number] Devi Hyde 01/11/2025 1 [employer] (MEDICARE REPLACEMENT/ ADVANTAGE - PPO) Devi Hyde [id number] Devi Hyde 01/11/2025 2 [place] Devi Hyde [id number] Devi Hyde 02/05/2025 1 [employer] (MEDICARE REPLACEMENT/ ADVANTAGE - PPO) Devi Hyde [id number] Devi Hyde 02/05/2025 2 [place] Devi Hyde [id number] Devi Hyde 03/04/2025 1 [employer] (MEDICARE REPLACEMENT/ ADVANTAGE - PPO) Devi Hyde [id number] Devi Hyde 03/04/2025 2 [place] Devi Hyde [id number] Devi Hyde Notes Date Note Type Note Provider Name and Address Organization Details Recorded Time 5 text/html HypertensionReported bypatient.Severity:Grade 1 (130-139/80-89) Duration:has noted for years Alleviating Factors:medication Self Care:using an ARB; using a beta bartolo Associated Symptoms:no shortness of breath; no fatigue; no palpitations; no decrease in exercise tolerance; no snoring toenail trim ASIA ZACARIAS PA-C [address] [place], [address], [facility], [place] 11/14/2024 16:24:49 5 text/html Musculoskeletal PainReported bypatient.Location:bilate ral foot; right toe Quality:dull Severity:worsening Duration:present for 1-6 months Timing:constant Aggravating factors:movement/position ing ADLs Affected:walking; sweeping; mopping; bathing; dressing; climbing stairs I need my toenails trimmed ASIA ZACARIAS PA-C [address] [place], [address], [facility], [facility] 01/01/2025 14:56:42 5 text/html Pre-OpReported bypatient.Surgery to be Performed:RIGHT HIP Severity:severe; pain level 6/10 Risk Factorsno frailty; able to climb a flight of stairs (exercise capacity>4 METS); no obstructive sleep apnea; non-smoker; no alcohol misuse; no illicit drug use; not obese;regular NSAID use Anesthesia hx:no hx of anesthesia complications; no allergy to anesthetic agents; no family history of anesthesia complications Functional Ability:able to walk up stairs; able to perform heavy work around the house; no difficulty walking up hills; able to walk 4 mph Post-Op Support:no need for assistance; adequate assistance at home I need pre-op clearance for elective right hip replacement to be done at [facility] on March 14, 2025 for advanced OA with AVN and cyst formationno trouble with anestesia in past.Quit smoking 20 yrs ago.Stent in 7..[address] Steele 3 weeks ago. No chest pain or SOB. On statin, b bartolo, arb and ASA 81 mg qd ASIA ZACARIAS PA-C [address] [place] [address], [address], [facility], [facility]ren 02/05/2025 12:00:04 text/html Skin LesionReported bypatient.Location:toe Quality:painful; tender Severity:moderate Timing:constant toenail trim today having right hip surgery next Tuesday03-12-25 ASIA ZACARIAS PA-C [address] [place] [address], [address], [facility], LKulwinderLKulwinderC. 03/04/2025 13:10:45 OBGyn Episode No OBEpisode recorded.
[2025-03-12 20:39] LABS: Alanine Aminotransferase 16 U/L (0-33); Albumin Level 3.6 g/dL (3.5-5.2); Alkaline Phosphatase 55 U/L (35-105); Anion Gap 16.4 (5-19); Aspartate Amino Transferase 22 U/L (0-32); Blood Urea Nitrogen 34 mg/dL (8-23); Calcium 8.4 mg/dL (8.5-10.5); Carbon Dioxide 20 mmol/L (22-29); Chloride 107 mmol/L (98-107); Creatinine Clr Calc Pharmacy 32.2697; Globulin 1.9 g/dL (1.3-4.6); Glucose 124 mg/dL (65-115); Osmolality Calculated 299 mOsm/kg (285-295); Potassium 3.4 mmol/L (3.5-5.1); Sodium 140 mmol/L (136-145); Total Bilirubin 0.9 mg/dL (0.15-1.2); Total Protein 5.5 g/dL (6.6-8.7)
[2025-03-12 20:46] LABS: Basophils # 0.1 10^3/uL (0.0-0.1); Basophils % 0.6 %; Eosinophils # 0.2 10^3/uL (0.0-0.8); Eosinophils % 1.5 %; Hematocrit 32.6 % (36-47); Lymphocytes % 9.1 %; Mean Corpuscular HGB Conc 31.9 g/dL (30-55); Mean Corpuscular Hemoglobin 29.8 pg (27-33); Mean Corpuscular Volume 93.4 fl (85-98); Mean Platelet Volume 10.5 fL (7.4-10.4); Neutrophils # 8.39 10^3/uL (1.8-7.7); Neutrophils % 79.2 %; Nucleated Red Blood Cells % 0 %; Platelet Count 191 10^3/cmm (157-399); Red Blood Count 3.49 10^6/uL (3.85-5.65); Red Cell Distribution Width 12.7 % (12.1-15.1); White Blood Count 10.58 10^3/uL (3.29-11.43)
[2025-03-12] MEDS: atorvastatin 40 mg Tablet 80 MG PO (21:04)
[2025-03-12] MEDS: carvedilol 6.25 mg Tablet PO (21:05)
[2025-03-12] MEDS: morphine 4 mg/mL SDV 1 mL IVP (22:57)
[2025-03-13] VITALS (11 sets, daily range): BP systolic 65–137; BP diastolic 42–74; PULSE 59–77; RESP 15–17; TEMP 36.6–36.8; O2SAT 94–98
[2025-03-13] MEDS: HYDROcodone-acetaminophen 5-325 mg Tablet 1 TAB PO ×2 (00:07→05:49)
[2025-03-13] MEDS: ketorolac 30 mg/mL INJ 15 MG IVP ×2 (01:54→08:06)
[2025-03-13 03:58] LABS: Basophils # 0.1 10^3/uL (0.0-0.1); Basophils % 0.6 %; Eosinophils # 0.2 10^3/uL (0.0-0.8); Eosinophils % 1.8 %; Hematocrit 32.6 % (36-47); Lymphocytes # 0.7 10^3/uL (0.8-4.8); Lymphocytes % 7.2 %; Mean Corpuscular HGB Conc 31.9 g/dL (30-55); Mean Corpuscular Hemoglobin 29.7 pg (27-33); Mean Corpuscular Volume 93.1 fl (85-98); Mean Platelet Volume 10.3 fL (7.4-10.4); Monocytes # 0.6 10^3/uL (0.2-0.9); Monocytes % 7.1 %; Neutrophils # 7.45 10^3/uL (1.8-7.7); Neutrophils % 82.9 %; Nucleated Red Blood Cells % 0 %; Platelet Count 172 10^3/cmm (157-399); Red Cell Distribution Width 12.6 % (12.1-15.1); White Blood Count 8.99 10^3/uL (3.29-11.43)
[2025-03-13 04:19] LABS: Blood Urea Nitrogen 31 mg/dL (8-23); Calcium 8.7 mg/dL (8.5-10.5); Carbon Dioxide 21 mmol/L (22-29); Chloride 109 mmol/L (98-107); Creatinine Clr Calc Pharmacy 32.2697; Glucose 115 mg/dL (65-115); Osmolality Calculated 299 mOsm/kg (285-295); Sodium 141 mmol/L (136-145)
[2025-03-13] MEDS: ceFAZolin 2,000 mg SDV 2000 MG IVP ×2 (05:02→12:53)
[2025-03-13] MEDS: ondansetron 2 mg/ML SDV 2 mL 4 MG IVP (07:24)
[2025-03-13] MEDS: iron polysaccharide complex 150 mg Capsule PO ×2 (08:59→18:27)
[2025-03-13] MEDS: sertraline 100 mg Tablet 50 MG PO (08:59)
[2025-03-13] MEDS: multivitamin therapeutic Tablet 1 TAB PO (09:00)
[2025-03-13] MEDS: gabapentin 300 mg Capsule PO (09:00)
[2025-03-13] MEDS: cholecalciferol (vitamin D3) 1,000 unit Tablet 1000 UNIT PO (09:01)
[2025-03-13] MEDS: sennosides-docusate Tablet 2 TAB PO ×2 (09:01→18:27)
[2025-03-13] MEDS: calcium carbonate 500 mg Chew Tablet 1000 MG PO ×2 (09:01→18:29)
[2025-03-13] MEDS: aspirin 325 mg EC Tablet PO (09:19)
[2025-03-13] MEDS: mupirocin oint 22 gm 1 APPLIC NASAL ×2 (09:19→18:28)
[2025-03-13] MEDS: carvedilol 6.25 mg Tablet PO (09:19)
--- NOTE | 2025-03-13 10:13 | P.PN_ITS ---
Subjective 2 Subjective: Patient reports that overnight she had nausea and abdominal discomfort. This morning she had 1 episode of large vomiting when she threw up most of her dinner. Suspect that this may be related to opiate use. No diarrhea. Patient states she feels slightly dizzy this morning. Orthostatics were checked which showed a systolic dropped down to 65 mmHg. Hemoglobin is stable at 10.4 postoperatively, baseline 13.8. Patient is appearing to be clinically dehydrated with dry lips and mucous membranes. Mild FARIDA with creatinine at 1.3, previous known baseline at 1.1 good urine output at 1500 cc Medications: Reviewed: Yes Vitals/I&O/Wt Last Vital Signs Temp 98.3 F 03/13/25 09:06 Pulse 77 03/13/25 12:30 Resp 15 03/13/25 09:06 BP 90/51 03/13/25 12:30 Pulse Ox 98 03/13/25 09:06 O2 Del Method Room Air 03/13/25 09:06 03/12/25 03/13/25 03/13/25 22:59 06:59 14:59 Intake Total 500 / 1050 818.333 / 818.333 Output Total 750 / 1000 350 / 1350 450 / 450 Balance -250 / 50 -350 / -300 368.333 / 368.333 Weight last 48 hrs Weight 61.235 kg Physical Exam 2 Narrative: General: No acute distress, AO x3 HEENT: PERRLA, pupils bilaterally equal and reactive, pallors not present Chest: Normal vesicular breath sounds, no added sounds, equal good air entry bilaterally CVS: S1-S2 regular, no murmurs, no tachycardia, no gallops, no rubs Abdomen: Soft, nontender, no organomegaly, bowel sounds present Neuro: No focal deficits, no facial deformity, AO x3, power 5/5 in all limbs Urinary Catheter Management: Hurley: Cath Placed During This Visit: yes, but has since been removed by the nurse Reason for Continuing Indwelling Catheter: Decision to DC Catheter Date Urinary Catheter Removed: 03/13/25 Time Urinary Catheter Discontinued: 12:55 Data 03/13/25 03:42 03/13/25 03:42 A&P Assessment and plan (1) Essential hypertension: Continue home medications losartan and carvedilol. (2) Tricuspid incompetence: Currently patient is euvolemic. No signs of decompensated heart failure. Lactated Ringer's currently running at 100 cc an hour. Would discontinue after 1000 cc has been completed postop. (3) Atherosclerosis of coronary artery of [place] heart without angina pectoris: Last coronary intervention several years ago. Currently on aspirin 325 mg p.o. daily for DVT prophylaxis which will additionally suffice for CAD. Once the DVT prophylaxis dose can be brought down from a surgery perspective, patient can be transitioned to aspirin 81 mg p.o. daily. (4) Hip osteoarthritis: Status post hemiarthroplasty today. States that pain is adequately controlled currently. Plan 03/13/2025 Patient noted to have orthostatic hypotension this morning with blood pressure dropped to 65 systolic. She had emesis this morning after having had nausea and abdominal discomfort overnight. Clinically appearing to be dehydrated. Will give IV fluid bolus 500 cc and put her on maintenance fluids at 75 cc an hour. Recheck orthostatics this afternoon. Hold losartan and carvedilol. Discontinue morphine as may be contributing to nausea. Pain management with IV Tylenol 1 g IV every 8 hours as needed. Change hydrocodone APAP to oxycodone IR 5 mg every 4 hours as needed to minimize oral acetaminophen use with initiation of IV acetaminophen. Zofran every 8 hours as a scheduled medication. PDMP PDMP Reviewed: Not Reviewed Attestations 2 Medical Necessity Statement*: orthostatic hypotension neds IVF Coding Level of Care Code Acute Code for Chg Fwd Diagnoses Essential hypertension I10 Nonrheumatic tricuspid valve regurgitation I36.1 Cardiac valve disease etiology: nonrheumatic Atherosclerosis of [place] coronary artery of [place] heart without angina pectoris I25.10 Coronary Disease-Associated Artery/Lesion type: [place] artery Primary osteoarthritis of right hip M16.11 Laterality: right Osteoarthritis type: primary
[2025-03-13] MEDS: sodium chloride 0.9% 1,000 ML 500 ML IV (11:35)
--- NOTE | 2025-03-13 11:40 | PC.NURSE ---
Call to Dr. Marroquin to report pt BP of 65/45 after getting up with OT. Pt reports dizziness. BP is rising and is now 95/57. Received orders to give 500 ML saline bolus and follow maintenance fluids at 75mL/hr.
[2025-03-13] MEDS: acetaminophen 1,000 MG/100 ML PIGGYBACK 400 MG IV ×2 (12:53→18:28)
[2025-03-13] MEDS: chlorhexidine gluconate 0.12% Btl 473 mL 30 ML MUCOUS MEM (13:07)
--- NOTE | 2025-03-13 13:35 | P.DS_ITS ---
Discharge Providers Date of Admission: 03/12/25 14:20 Date of Discharge: March 13, 2025 Attending Provider at Admission: Mauri Moore MD Attending Provider at Discharge: Mauri Moore MD Primary Care Provider: Asia Steven Diagnoses at Discharge Discharge Diagnosis (1) S/P total right hip arthroplasty: Status: Acute Permanent problem details: Date of procedure: March 12, 2025. Surgeon: Mauri Moore MD. Procedure: Preop diagnosis: 1 end-stage degenerative joint disease right hip. Procedure: Right total hip arthroplasty. Surgeon: Mauri Moore MD. (2) Essential hypertension: Status: Acute (3) Tricuspid incompetence: Status: Acute Qualifiers: Cardiac valve disease etiology: nonrheumatic Qualified Code(s): I36.1 - Nonrheumatic tricuspid (valve) insufficiency (4) Atherosclerosis of coronary artery of [place] heart without angina pectoris: Status: Acute Qualifiers: Coronary Disease-Associated Artery/Lesion type: [place] artery Qualified Code(s): I25.10 - Atherosclerotic heart disease of [place] coronary artery without angina pectoris (5) Hip osteoarthritis: Status: Acute Qualifiers: Laterality: right Osteoarthritis type: primary Qualified Code(s): M16.11 - Unilateral primary osteoarthritis, right hip Reason for Visit Reason for Visit: M25.551 Brief History: Devi is a 79-year-old white female was referred into the orthopedic clinics for debilitating right hip pain. After evaluation and review of x-rays it was found that she had loss of motion within her hip. She has lost internal/external rotation. She had pain with weightbearing. She is now using an assistive device to walk with. [id number] anti-inflammatories are not beneficial. X-rays demonstrated distraction of the superior portion of the femoral head with cystic changes and wear into the acetabulum. Therefore at this time she was offered a right total hip arthroplasty. Patient underwent successful right total hip arthroplasty on March 12, 2025 and was admitted subsequently on observation status postoperatively. Hospital Course Hospital Course Patient is a 79-year-old, female patient, who is status post right total hip arthroplasty postoperative day 1. She has done quite well in her postoperative state via observation. Her hospital course has been well, while working with physical therapy. She is ambulating safely and therapy services felt that she is safe for discharge. Medically, she did have episodes of hypotension and nausea, for that because her postoperative pain medications were lowered and this resolved. The patient is ambulating with PT without concern this af ternoon. Her blood pressure is now stable. She has done well with low doses of pain medications, alternating with [id number] Tylenol. We will continue this course in the interim. Incision is clean and dry, no sign or symptom of infection. Postoperative dressing intact. Follow-up in our clinic in 2 weeks for postoperative visit. Physical Exam Const: COMMON NORMALS: no acute distress, average body habitus, patient oriented x3, no limitations, alert and well nourished GENERAL APPEARANCE: cooperative; not anxious and not combative ORIENTATION/CONSCIOUSNESS: Yes awake, Yes oriented to person, Yes oriented to place and Yes oriented to time HENMT: COMMON NORMALS: normocephalic and atraumatic HEAD & SCALP: normocephalic and atraumatic Resp: COMMON NORMALS: normal respiratory effort and No use of accessory muscles Extremity: RIGHT LOWER EXTREMITY: Yes hip joint Right hip: Yes inspection (Postoperative dressing clean and dry. No active bleeding), Yes palpation (Mild TTP to lateral hip and incision.), Yes ROM (Able to straight leg raise.) and Yes neurovascular exam (Sensation intact to light touch. Rapid cap refill.) and Yes lower leg Right lower leg: Yes special tests Right lower leg special tests: Madi's sign: Negative Neuro: COMMON NORMALS: patient oriented x3 SENSORIUM/ORIENTATION: Yes alert, Yes oriented to person, Yes oriented to place and Yes oriented to time Psych: ATTITUDE: Yes engaged Skin: COMMON NORMALS: no rashes or lesions noted, turgor normal and no jaundice GENERAL SKIN EXAM: no rashes or lesions noted and turgor normal Urinary Catheter Management: Hurley: Cath Placed During This Visit: yes, but has since been removed by the nurse Reason for Continuing Indwelling Catheter: Decision to DC Catheter Date Urinary Catheter Removed: 03/13/25 Time Urinary Catheter Discontinued: 12:55 Discharge Data Studies Completed and Pending Completed Studies During Hospitalization Category Date Time Status XR hip RT 1V wo/w pel [id number] Routine Exams 03/12/25 14:34 Completed Pending at discharge Category Date Time Status CMP [Comprehensive Metabolic Panel] AM LABS Lab 03/14/25 04:00 Ordered Complete Blood Count w/Auto AM LABS Lab 03/14/25 04:00 Ordered Complete Blood Count w/Auto AM LABS Lab 03/15/25 04:00 Ordered Laboratory Results WBC 8.99 10^3/uL (3.29-11.43) 03/13/25 03:42 RBC 3.50 10^6/uL (3.85-5.65) L 03/13/25 03:42 Hgb 10.40 g/dL (11.27-16.99) L 03/13/25 03:42 Hct 32.6 % (36-47) L 03/13/25 03:42 MCV 93.1 fl (85-98) 03/13/25 03:42 MCH 29.7 pg (27-33) 03/13/25 03:42 MCHC 31.9 g/dL (30-55) 03/13/25 03:42 RDW 12.6 % (12.1-15.1) 03/13/25 03:42 Plt Count 172 10^3/cmm (157-399) 03/13/25 03:42 MPV 10.3 fL (7.4-10.4) 03/13/25 03:42 Neut % (Auto) 82.9 % 03/13/25 03:42 Lymph % (Auto) 7.2 % 03/13/25 03:42 [place] % (Auto) 7.1 % 03/13/25 03:42 Eos % (Auto) 1.8 % 03/13/25 03:42 Baso % (Auto) 0.6 % 03/13/25 03:42 Neut # (Auto) 7.45 10^3/uL (1.8-7.7) 03/13/25 03:42 Lymph # (Auto) 0.7 10^3/uL (0.8-4.8) L 03/13/25 03:42 [place] # (Auto) 0.6 10^3/uL (0.2-0.9) 03/13/25 03:42 Eos # (Auto) 0.2 10^3/uL (0.0-0.8) 03/13/25 03:42 Baso # (Auto) 0.1 10^3/uL (0.0-0.1) 03/13/25 03:42 Nucleated RBC % (auto) 0 % 03/13/25 03:42 Nucleated RBCs # 0.0 /100WBC 03/13/25 03:42 Sodium 141 mmol/L (136-145) 03/13/25 03:42 Potassium 4.0 mmol/L (3.5-5.1) 03/13/25 03:42 Chloride 109 mmol/L (98-107) H 03/13/25 03:42 Carbon Dioxide 21 mmol/L (22-29) L 03/13/25 03:42 Anion Gap 15.0 (5-19) 03/13/25 03:42 BUN 31 mg/dL (8-23) H 03/13/25 03:42 Creatinine 1.3 mg/dL (0.5-0.9) H 03/13/25 03:42 GFR Calculation Not Reportable 03/13/25 03:42 Glucose 115 mg/dL (65-115) 03/13/25 03:42 Calculated Osmolality 299 mOsm/kg (285-295) H 03/13/25 03:42 Calcium 8.7 mg/dL (8.5-10.5) 03/13/25 03:42 Total Bilirubin 0.9 mg/dL (0.15-1.2) 03/12/25 20:11 AST 22 U/L (0-32) 03/12/25 20:11 ALT 16 U/L (0-33) 03/12/25 20:11 Alkaline Phosphatase 55 U/L (35-105) 03/12/25 20:11 Total Protein 5.5 g/dL (6.6-8.7) L 03/12/25 20:11 Albumin 3.6 g/dL (3.5-5.2) 03/12/25 20:11 Globulin 1.9 g/dL (1.3-4.6) 03/12/25 20:11 Vitals Last Vital Signs Temp 98.3 F 03/13/25 09:06 Pulse 77 03/13/25 12:30 Resp 15 03/13/25 09:06 BP 90/51 03/13/25 12:30 Pulse Ox 98 03/13/25 09:06 O2 Del Method Room Air 03/13/25 09:06 Discharge Plan Discharge Patient Disposition: Home Condition: Stable Prescriptions: New hydrocodone-acetaminophen 10-325 mg tablet 1 tab PO Q8H PRN (Reason: pain) Qty: 15 0RF ondansetron 4 mg tablet,disintegrating 4 mg PO TID PRN (Reason: nausea and vomiting) Qty: 12 0RF aspirin 325 mg Tablet,Delayed Release (Dr/Ec) 325 mg PO DAILY Qty: 30 0RF Continued atorvastatin 80 mg tablet 80 mg PO DAILY carvedilol 6.25 mg tablet 6.25 mg PO BID Rx Instructions: must administer with a meal/food diclofenac sodium 75 mg tablet,delayed release (DR/EC) 75 mg PO BID gabapentin 300 mg capsule 300 mg PO DAILY sertraline 100 mg tablet 50 mg PO DAILY acetaminophen [Tylenol 8 Hour] 650 mg tablet extended release 650 mg PO Q12H losartan 50 mg tablet 50 mg PO DAILY Rx Instructions: Take 1 tablet by mouth once daily Held aspirin 81 mg tablet,chewable 81 mg PO DAILY Hold Instructions: Resume on 04/14/25. Discharge Orders: Discharge Order (Routine); Ordered 03/13/25 Ordered By: Lennie Acevedo Other Ambulatory Orders: DME: Walker (Order) Location: None Selected Ordered By: Mauri Moroe Physical Therapy Eval and Treat Outpatient (Order) Timeframe: 2 Days Facility: [facility] - Location: Physical Therapy [place] Ordered By: Mauri Moore Referrals: Physical Therapy - [facility] [Provider Group] Discharge Diet: Advance as tolerated Discharge Activity: As per PT/OT instructions Patient Instructions: Acute Wound Care (DC), OB Discharge Report, OB Food/Drug Interaction Guide, Opioid Safety, Post Anesthesia Care Activity Restrictions/Additional Instructions: Utilize abduction wedge and follow dislocation precautions as instructed by physical therapy. Weightbearing as tolerated with the assistance of a walker. Maintain postoperative dressing and do not remove prior to first postoperative appointment. If there are any issues with postoperative dressing or if it becomes loose, please contact the clinic promptly. Utilize pain medications as prescribed. May utilize [id number]-efo-[id number] Tylenol and alteration with narcotic medications. Do not exceed 3000 mg of Tylenol in 24 hours, to include the Tylenol in the hydrocodone prescription, as well as all other supplemental Tylenol. Discharge Attestations Time Spent in Discharge Care*: greater than 30 min Quality Metrics Clinical Quality Measures [ No reported AMI, CVA or VTE this stay] Coding Level of Care Code Acute Code for Chg Fwd Diagnoses S/P total right hip arthroplasty Z96.641 Essential hypertension I10 Nonrheumatic tricuspid valve regurgitation I36.1 Cardiac valve disease etiology: nonrheumatic Atherosclerosis of [place] coronary artery of [place] heart without angina pectoris I25.10 Coronary Disease-Associated Artery/Lesion type: [place] artery Primary osteoarthritis of right hip M16.11 Laterality: right Osteoarthritis type: primary
--- NOTE | 2025-03-13 14:54 | P.PN_ITS ---
Subjective 2 Medications: Reviewed: Yes Vitals/I&O/Wt Last Vital Signs Temp 98.3 F 03/13/25 09:06 Pulse 77 03/13/25 12:30 Resp 15 03/13/25 09:06 BP 82/59 03/13/25 14:33 Pulse Ox 98 03/13/25 09:06 O2 Del Method Room Air 03/13/25 09:06 03/12/25 03/13/25 03/13/25 22:59 06:59 14:59 Intake Total 500 / 1050 918.333 / 918.333 Output Total 750 / 1000 350 / 1350 450 / 450 Balance -250 / 50 -350 / -300 468.333 / 468.333 Weight last 48 hrs Weight 135 lb Physical Exam 2 Const: COMMON NORMALS: no acute distress, average body habitus, patient oriented x3, no limitations, alert and well nourished GENERAL APPEARANCE: c ooperative; not anxious and not combative ORIENTATION/CONSCIOUSNESS: Yes awake, Yes oriented to person, Yes oriented to place and Yes oriented to time HENMT: COMMON NORMALS: normocephalic and atraumatic HEAD & SCALP: n ormocephalic and atraumatic Resp: COMMON NORMALS: normal respiratory effort and No use of accessory muscles Extremity: RIGHT LOWER EXTREMITY: Yes hip joint Right hip: Yes inspection (Postoperative dressing clean and dry. No active bleeding), Yes palpation (Mild TTP to lateral hip and incision.), Yes ROM (Able to straight leg raise.) and Yes neurovascular exam (Sensation intact to light touch. Rapid cap refill.) and Yes lower leg Right lower leg: Yes special tests Right lower leg special tests: Madi's sign: Negative Neuro: COMMON NORMALS: patient oriented x3 SENSORIUM/ORIENTATION: Yes alert, Yes oriented to person, Yes oriented to place and Yes oriented to time Psych: ATTITUDE: Yes engaged Skin: COMMON NORMALS: no rashes or lesions noted, turgor normal and no jaundice GENERAL SKIN EXAM: no rashes or lesions noted and turgor normal Urinary Catheter Management: Hurley: Cath Placed During This Visit: yes, but has since been removed by the nurse Reason for Continuing Indwelling Catheter: Decision to DC Catheter Date Urinary Catheter Removed: 03/13/25 Time Urinary Catheter Discontinued: 12:55 Data 03/13/25 03:42 03/13/25 03:42 A&P PDMP PDMP Reviewed: Last Reviewed 03/13/25 14:53 EDT by Lennie Acevedo FNP-BC Coding Level of Care Code Acute Code for Chg Fwd
[2025-03-13] MEDS: sodium chloride 0.9% 500 ML IV (16:00)
[2025-03-13] MEDS: sodium chloride 0.9% 1,000 ML 75 ML IV (17:27)
[2025-03-13] MEDS: atorvastatin 40 mg Tablet 80 MG PO (21:56)
[2025-03-14] MEDS: TRAMadol 50 mg Tablet PO ×2 (00:10→09:37)
[2025-03-14] MEDS: acetaminophen 1,000 MG/100 ML PIGGYBACK 400 MG IV (02:28)
[2025-03-14 04:02] VITALS: BP 105/55; PULSE 67; RESP 16; TEMP 36.7; O2SAT 96
[2025-03-14 04:18] LABS: Basophils # 0.1 10^3/uL (0.0-0.1); Basophils % 0.4 %; Eosinophils # 0.3 10^3/uL (0.0-0.8); Eosinophils % 2.9 %; Hematocrit 26.6 % (36-47); Lymphocytes # 0.7 10^3/uL (0.8-4.8); Lymphocytes % 6.1 %; Mean Corpuscular HGB Conc 32.7 g/dL (30-55); Mean Corpuscular Hemoglobin 30.2 pg (27-33); Mean Corpuscular Volume 92.4 fl (85-98); Mean Platelet Volume 10.1 fL (7.4-10.4); Monocytes % 8.8 %; Neutrophils # 9.14 10^3/uL (1.8-7.7); Neutrophils % 81.3 %; Nucleated Red Blood Cells % 0 %; Platelet Count 166 10^3/cmm (157-399); Red Blood Count 2.88 10^6/uL (3.85-5.65); Red Cell Distribution Width 12.8 % (12.1-15.1); White Blood Count 11.26 10^3/uL (3.29-11.43)
[2025-03-14 04:42] LABS: Alanine Aminotransferase < 5 U/L (0-33); Albumin Level 2.9 g/dL (3.5-5.2); Alkaline Phosphatase 55 U/L (35-105); Anion Gap 13.8 (5-19); Aspartate Amino Transferase 16 U/L (0-32); Blood Urea Nitrogen 21 mg/dL (8-23); Calcium 8.2 mg/dL (8.5-10.5); Carbon Dioxide 21 mmol/L (22-29); Chloride 111 mmol/L (98-107); Globulin 2.1 g/dL (1.3-4.6); Glucose 123 mg/dL (65-115); Osmolality Calculated 298 mOsm/kg (285-295); Potassium 3.8 mmol/L (3.5-5.1); Sodium 142 mmol/L (136-145); Total Bilirubin 0.8 mg/dL (0.15-1.2)
--- NOTE | 2025-03-14 06:42 | PC.NURSE ---
This RN ambulated with patient to bathroom throughout the shift at 8, 0005, and 0642. At these times the patient preformed well with movement. Ambulated without complaint and by moving right foot and leg to best ability that did not include need to drag extremity.
--- NOTE | 2025-03-14 08:33 | CTR_ITS ---
PROCEDURE INFORMATION: Exam: CT Abdomen And Pelvis Without Contrast Exam date and time: 03/14/2025 9:02 AM Age: 79 years old Clinical indication: Abdominal pain; Generalized; Prior surgery; Surgery date: 6+ months; Surgery type: Appy, hip 3 days ago; Additional info: Assess for bleeding, assess for retroperitoneal bleeding, S/P hip surgery, hb, gas, generalized abd pain TECHNIQUE: Imaging protocol: Computed tomography of the abdomen and pelvis without contrast. Radiation optimization: All CT scans at this facility use at least one of these dose optimization techniques: automated exposure control; mA and/or kV adjustment per patient size (includes targeted exams where dose is matched to clinical indication); or iterative reconstruction. COMPARISON: CR XR hip RT 1V wo/w pel [id number] 03/12/2025 2:44 PM RADIATION DOSE METRICS: Total DLP (mGy-cm): 519.35 FINDINGS: Pleural spaces: Trace right pleural effusion. Liver: Small hepatic cyst. Gallbladder and biliary ducts: Normal. No calcified stones. No ductal dilation. Pancreas: Normal. No ductal dilation. Spleen: Normal. No splenomegaly. Adrenal glands: Normal. No mass. Kidneys and ureters: Upper pole renal cyst. Stomach and bowel: Unremarkable. No obstruction. No mucosal thickening. Appendix: No evidence of appendicitis. Intraperitoneal space: Unremarkable. No free air. No significant fluid collection. Vasculature: Unremarkable. No abdominal aortic aneurysm. Lymph nodes: Unremarkable. No enlarged lymph nodes. Urinary bladder: Gas within the urinary bladder probably due to recent instrumentation. Reproductive: Unremarkable as visualized. Bones/joints: Hip replacement with gas in the soft tissues, the latter finding expected 3 days postop. Soft tissues: Unremarkable. CT/CT abdomen pelvis wo con [id number] IMPRESSION: No acute abnormality. COMMENTS: Consistent with the [employer]'s Incidental Findings Committee white paper (J Am Mamie Radiol 2018): Any incidental renal lesion less than 1 cm or classified as too small to characterize, or any incidental cystic renal lesion characterized as simple-appearing, is likely benign. No follow-up imaging is recommended for these lesions per consensus recommendations based on imaging criteria.
[2025-03-14] MEDS: sodium chloride 0.9% 1,000 ML 75 ML IV (08:59)
[2025-03-14] MEDS: gabapentin 300 mg Capsule PO (09:32)
[2025-03-14] MEDS: sennosides-docusate Tablet 2 TAB PO (09:32)
[2025-03-14] MEDS: multivitamin therapeutic Tablet 1 TAB PO (09:32)
[2025-03-14] MEDS: mupirocin oint 22 gm 1 APPLIC NASAL (09:33)
[2025-03-14] MEDS: iron polysaccharide complex 150 mg Capsule PO (09:33)
[2025-03-14] MEDS: calcium carbonate 500 mg Chew Tablet 1000 MG PO (09:33)
[2025-03-14] MEDS: cholecalciferol (vitamin D3) 1,000 unit Tablet 1000 UNIT PO (09:33)
[2025-03-14] MEDS: sertraline 100 mg Tablet 50 MG PO (09:34)
[2025-03-14 09:40] VITALS: BP 101/63; BP 118/71; BP 125/62; PULSE 86; PULSE 93; PULSE 97
[2025-03-14 09:45] VITALS: RESP 15; TEMP 36.4; O2SAT 92
[2025-03-14] MEDS: aspirin 325 mg EC Tablet PO (09:56)
--- NOTE | 2025-03-14 10:27 | PM.PN ---
Subjective Subjective: Patient's hemoglobin this morning was noted to be 8.7, stat repeat hemoglobin check was ordered which revealed a hemoglobin of 9.4. Patient is complaining of mild abdominal discomfort which is improved over yesterday. No further episodes of emesis. She reports mild nausea. Medications: Reviewed: Yes Vitals/I&O/Wt Last Vital Signs Temp 97.6 F 03/14/25 09:45 Pulse 86 03/14/25 09:40 Resp 15 03/14/25 09:45 BP 125/62 03/14/25 09:40 Pulse Ox 92 03/14/25 09:45 O2 Del Method Room Air 03/14/25 09:45 03/13/25 03/14/25 03/14/25 22:59 06:59 14:59 Intake Total 1631.667 / 2550.000 1000 / 3550.000 Output Total 400 / 850 Balance 1231.667 / 4540.914 2909 / 2700.000 Physical Exam Narrative: General: No acute distress, AO x3 HEENT: PERRLA, pupils bilaterally equal and reactive, pallors not present Chest: Normal vesicular breath sounds, no added sounds, equal good air entry bilaterally CVS: S1-S2 regular, no murmurs, no tachycardia, no gallops, no rubs Abdomen: Soft, nontender, no organomegaly, bowel sounds present Neuro: No focal deficits, no facial deformity, AO x3, power 5/5 in all limbs Urinary Catheter Management: Hurley: Cath Placed During This Visit: yes, but has since been removed by the nurse Reason for Continuing Indwelling Catheter: Required Immobilization for Trauma or Surgery or Anesthesia Date Urinary Catheter Removed: 03/13/25 Time Urinary Catheter Discontinued: 12:55 Data 03/14/25 08:45 03/14/25 04:05 A&P Assessment and plan (1) Essential hypertension: Continue home medications losartan and carvedilol. (2) Tricuspid incompetence: Currently patient is euvolemic. No signs of decompensated heart failure. Lactated Ringer's currently running at 100 cc an hour. Would discontinue after 1000 cc has been completed postop. (3) Atherosclerosis of coronary artery of [place] heart without angina pectoris: Last coronary intervention several years ago. Currently on aspirin 325 mg p.o. daily for DVT prophylaxis which will additionally suffice for CAD. Once the DVT prophylaxis dose can be brought down from a surgery perspective, patient can be transitioned to aspirin 81 mg p.o. daily. (4) Hip osteoarthritis: Status post hemiarthroplasty today. States that pain is adequately controlled currently. Plan 03/13/2025 Patient noted to have orthostatic hypotension this morning with blood pressure dropped to 65 systolic. She had emesis this morning after having had nausea and abdominal discomfort overnight. Clinically appearing to be dehydrated. Will give IV fluid bolus 500 cc and put her on maintenance fluids at 75 cc an hour. Recheck orthostatics this afternoon. Hold losartan and carvedilol. Discontinue morphine as may be contributing to nausea. Pain management with IV Tylenol 1 g IV every 8 hours as needed. Change hydrocodone APAP to oxycodone IR 5 mg every 4 hours as needed to minimize oral acetaminophen use with initiation of IV acetaminophen. Zofran every 8 hours as a scheduled medication. March 14, 2025 Patient's orthostatics are much improved this morning. Baseline blood pressure of 125/62, maintaining at 118/71 upon standing. She denies any dizziness today. Hemoglobin this morning at 8.7, likely from postoperative blood loss, rechecked at 9.4. Currently does not require blood transfusion. Continues to complain of mild abdominal discomfort which has been persistent since yesterday. Given the noted drop in hemoglobin and ongoing abdominal discomfort, will obtain CT of the abdomen and pelvis to rule out any intra-abdominal/intraperitoneal bleeding. Patient will be stable for discharge from a medicine standpoint if this study returns negative for any bleeding. PDMP PDMP Reviewed: Not Reviewed Attestations Medical Necessity Statement*: Stable for discharge from medicine standpoint if CT reveals no bleeding Coding Level of Care Code Acute Code for Chg Fwd Diagnoses Essential hypertension I10 Nonrheumatic tricuspid valve regurgitation I36.1 Cardiac valve disease etiology: nonrheumatic Atherosclerosis of [place] coronary artery of [place] heart without angina pectoris I25.10 Coronary Disease-Associated Artery/Lesion type: [place] artery Primary osteoarthritis of right hip M16.11 Laterality: right Osteoarthritis type: primary
[2025-03-14 14:43] VITALS: RESP 15; O2SAT 92
[2025-03-14] MEDS: oxyCODONE 5 mg IR Tab/Cap PO (14:43)
[2025-03-14 15:50] VITALS: BP 166/82; PULSE 72; RESP 16; TEMP 36.4; O2SAT 92
== END 2025-03-14 15:54 | disposition home or self-care (01) ==
LOC: OBGYN 19:56
PROVIDERS: Student in an Organized Health Care Education/Training Program; Admitting Provider Orthopaedic Surgery; PCP Physician Assistant; Visit Provider Orthopaedic Surgery
PROC: (CPT 27130; principal; 2025-03-12 11:05)
DX: M16.11 Unilateral primary osteoarthritis, right hip (principal); I25.10 Atherosclerotic heart disease of native coronary artery without angina pectoris; I36.1 Nonrheumatic tricuspid (valve) insufficiency; I10 Essential (primary) hypertension; Z79.82 Long term (current) use of aspirin; I95.81 Postprocedural hypotension; Z87.891 Personal history of nicotine dependence; I25.2 Old myocardial infarction
CPT/HCPCS: 27130; 36415; 73501; 74176; 80048; 80053; 85014; 85018; 85025; 97110; 97116; 97161; 97167; 97530; 97535; C1713; C1776; G0378; J0131; J0690; J1885; J2270; J2405; J2704; J7030; J7040; J9999

== ENCOUNTER 2025-03-19 13:47 | Outpatient (RCR) | payer MEDICARE, MEDICAID, SELFPAY | END 2025-03-30 23:55 | disposition home or self-care (01) | LOC: SPT 13:47 | PROVIDERS: Visit Provider Orthopaedic Surgery | DX: M16.11 Unilateral primary osteoarthritis, right hip (principal) | CPT/HCPCS: 97110; 97161 ==

== ENCOUNTER → 2025-03-28 10:35 | Outpatient (BNVA) | payer MEDICARE, MEDICAID, SELFPAY | PROVIDERS: Visit Provider Orthopaedic Surgery | DX: Z96.641 Presence of right artificial hip joint (principal) | CPT/HCPCS: 73502; 99024 ==

== ENCOUNTER 2025-03-31 05:00 | Outpatient (RCR) | payer MEDICARE, MEDICAID, SELFPAY | END 2025-04-29 23:59 | disposition home or self-care (01) | LOC: SPT 05:00 | PROVIDERS: Visit Provider Orthopaedic Surgery | DX: M16.11 Unilateral primary osteoarthritis, right hip (principal) | CPT/HCPCS: 97110 ==

== ENCOUNTER → 2025-05-27 10:46 | Outpatient (BNVA) | payer MEDICARE, MEDICAID, SELFPAY | PROVIDERS: Visit Provider Orthopaedic Surgery | DX: Z96.641 Presence of right artificial hip joint (principal) | CPT/HCPCS: 73502; 99024 ==

== ENCOUNTER 2025-07-25 13:30 | Outpatient (CLI) | payer MEDICARE, MEDICAID, SELFPAY ==
--- NOTE | 2025-07-25 13:43 | XR_ITS ---
WS: [id number] SCREENING DEXA SCAN [employer] CLINICAL INFORMATION: ASYMPTOMATIC MENOPAUSAL STATE COMPARISON: 2022 FINDINGS: The L1-L4 bone mineral density measures 1.066 g/cm2. This corresponds to a T score score of -1.0 and Z score of 1.0. Left femoral neck bone mineral density measures 0.899 (g/cm2). This corresponds to a T score of -0.9 (no units) and Z score of 1.2 (no units). LEFT forearm bone mineral density measures 0.674. This corresponds to a T score -2.3 of and Z score of 0.3. XR/XR DEXA axial skeleton* [id number] IMPRESSION: Normal bone mineralization LEFT femoral neck approaching osteopenia. Osteopenia lumbar spine. Osteopenia LEFT forearm approaching osteoporosis. Patient's FRAX calculated 10 year probability for major osteoporotic fracture i s 18.4% and osteoporotic hip fracture is 4.1%. Bone density lumbar spine decreased -0.9% Bone density LEFT femoral neck decrease -0.7%
== END 2025-07-25 13:31 | disposition home or self-care (01) ==
LOC: RAD 13:33
PROVIDERS: Visit Provider Physician Assistant
DX: Z78.0 Asymptomatic menopausal state (principal)
CPT/HCPCS: 77080

== ENCOUNTER → 2025-08-26 10:49 | Outpatient (BNVA) | payer MEDICARE, MEDICAID, SELFPAY | PROVIDERS: Visit Provider Orthopaedic Surgery | DX: Z47.89 Encounter for other orthopedic aftercare (principal); Z96.641 Presence of right artificial hip joint | CPT/HCPCS: 73502; 99213 ==

== ENCOUNTER 2025-08-31 06:30 | Outpatient (RCR) | payer MEDICARE, MEDICAID, SELFPAY | END 2025-09-29 23:59 | disposition home or self-care (01) | LOC: SPT 06:30 | PROVIDERS: Visit Provider Orthopaedic Surgery | DX: Z96.641 Presence of right artificial hip joint (principal) | CPT/HCPCS: 97110; 97161 ==

== ENCOUNTER 2025-09-30 06:30 | Outpatient (RCR) | payer MEDICARE, MEDICAID, SELFPAY | END 2025-10-16 09:00 | disposition home or self-care (01) | LOC: SPT 06:30 | PROVIDERS: PCP Physician Assistant; Visit Provider Orthopaedic Surgery | DX: Z47.1 Aftercare following joint replacement surgery (principal); Z96.651 Presence of right artificial knee joint | CPT/HCPCS: 97110 ==

== ENCOUNTER → 2025-10-01 13:16 | Outpatient (BNVA) | payer MEDICARE, MEDICAID, SELFPAY | PROVIDERS: PCP Physician Assistant; Visit Provider Orthopaedic Surgery | DX: Z96.641 Presence of right artificial hip joint (principal) | CPT/HCPCS: 99213 ==